=== PATIENT | female | born 1985 | race Caucasian/White ===

== ENCOUNTER 2019-10-23 12:05 | Emergency (ER) | payer OTHER, SELFPAY ==
--- NOTE | ~2019-10-23 | CT_ITS ---
EXAMINATION: CT abdomen pelvis wo con DATE: 10/23/2019 12:49 INDICATION: Left-sided abdominal pain TECHNIQUE: Computed tomography (CT) of the abdomen and pelvis was performed without intravenous contr ast. Automated exposure control and iterative reconstruction technique were employed. The dose-length product was 183.72 mGy-cm. COMPARISON: 07/28/2013 FINDINGS: Lung bases are clear. Heart size is normal. No pericardial or pleural effusion. Gradient of increasin g density in the dependent aspect of the normal-appearing gallbladder consistent with gallbladder slu dge. Liver, spleen, pancreas and bilateral adrenal glands are normal. Right kidney and ureter are nor mal with no urolithiasis or hydronephrosis. 12 x 10 mm staghorn calculus filling a lower pole calyx o f the left kidney. There are couple additional 1-2 mm stones in the left kidney. 1.2 cm left renal cy [address]. No stones seen along the course of the left ureter. No hydronephrosis. IUD in expected position w ithin the anteverted uterus. Decompressed bladder is unremarkable. Mild scattered colonic diverticulo sis without adjacent inflammatory change to suggest diverticulitis. Small bowel and appendix are norm al. Small amount of likely physiologic free fluid in the cul-de-sac. No pathologically enlarged abdom inal or pelvic lymphadenopathy. Bones are unremarkable. IMPRESSION: 1. Nonobstructing left nephrolithiasis. 2. IUD in expected position. Reviewed, dictated and finalized at location A.
[2019-10-23 12:11] VITALS: BP 129/49; PULSE 142; RESP 18; TEMP 37.1; O2SAT 100
--- NOTE | 2019-10-23 12:31 | ED.BACK ---
HPI - Back Pain/Injury General Chief Complaint: Back Pain/Injury Stated Complaint: back, abd pain Time Seen by Provider: 10/23/19 12:05 Source: patient and family Mode of arrival: ambulatory Limitations: no limitations History of Present Illness HPI Narrative: Patient is a 34-year-old female who presents to emergency department for evaluation of left-sided flank pain noting aching pain to the lower back is also had some lower abdominal discomfort patient notes she has subjective fever chills. Patient has been taking ibuprofen and Tylenol with improvement. Patient notes she has had some nausea but no emesis. Patient notes history significant for ovarian cyst uterine fibroids and urolithiasis. Related Data Allergies Allergy/AdvReac Type Severity Reaction Status Date / Time amoxicillin Allergy Unknown Hives Verified 10/23/19 12:14 Penicillins Allergy Unknown Hives Verified 10/23/19 12:14 Review of Systems Review of Systems: All systems reviewed & are unremarkable except as noted in HPI and below PMFSH Past Medical History Medical History (Updated 10/23/19 @ 14:29 by Jason Hyatt PA-C) Kidney stone Ovarian cyst Uterine fibroid Family History Family History (Updated 06/26/18 @ 09:57 by DOCTOR UNKNOWN) Father Hypertension Patient's father is in good health Sibling Asthma Patient's brother is in good health Mother Patient's mother is in good health Other Diabetes mellitus Family history of allergic disorder Social History Social History Smoking status: Never smoker Alcohol intake: current Gender identity (if verbalized by the patient): Female Exam Narrative: Exam Narrative: GENERAL: Well-appearing, well-nourished, and in no acute distress. HEAD: Normocephalic, atraumatic. EYES: PERRLA and EOMI. ENT: Nares clear, no rhinorrhea or epistaxis. Mucous membranes moist. CHEST: Clear to auscultation. No respiratory distress. No wheezes rales or rhonchi HEART: Regular rate and rhythm. No murmur heard. Normal peripheral pulses. ABDOMEN: Soft, mild tenderness of the abdomen, nondistended, normal active bowel sounds. EXTREMITIES: Normal range of motion. No edema. SKIN: Warm, dry, no rash. NEURO: No focal deficits. Alert and oriented x3. PSYCH: Normal mood and affect. Course Course Emergency Course: Patient in the room in no distress aware of case findings treatment plan diagnosis Vital Signs Vital signs: Vital Signs Temperature 98.7 F 10/23/19 12:11 Pulse Rate 142 H 10/23/19 12:11 Respiratory Rate 18 10/23/19 12:11 Blood Pressure 129/49 L 10/23/19 12:11 Pulse Oximetry 100 10/23/19 12:11 Temperature 98.7 F 10/23/19 12:11 Pulse Rate 142 H 10/23/19 12:11 Respiratory Rate 18 10/23/19 12:11 Blood Pressure 129/49 L 10/23/19 12:11 Pulse Oximetry 100 10/23/19 12:11 MDM - Back Pain/Injury MDM Narrative Medical decision making narrative: Patient with urinary tract infection as the likely etiology of her symptoms in the room at this time in no distress feeling much better after medications afebrile nontoxic-appearing was given fluids IV antibiotics in the emergency department is able to tolerate p.o. intake without emesis. Lab Data Result diagrams: 10/23/19 12:34 10/23/19 12:34 Labs: Lab Results 10/23/19 10/23/19 10/23/19 Range/Units 12:34 12:34 12:34 WBC 16.9 H (4.5-10.0) K/mm3 RBC 4.76 (4.2-5.4) M/mm3 Hgb 14.3 (12.0-15.0) g/dL Hct 43.1 (37.0-47.0) % MCV 90.5 (80-100) fl MCH 30.0 (26-34) pg MCHC 33.2 (32-36) g/dl RDW 12.3 (11.5-14.5) % Plt Count 207 (150-375) k/mm3 MPV 10.9 H (7.4-10.4) fl Immature Gran % (Auto) 0.7 H (0-0.5) % Neut % (Auto) 85.1 H (45.5-73.1) % Lymph % (Auto) 5.2 L (18.3-44.2) % [place] % (Auto) 8.7 H (2.6-8.5) % Eos % (Auto) 0.1 (0-4.4) % Baso % (Auto) 0.2 (0.2-1.2) %
[2019-10-23] MEDS: FAMOTIDINE 20 MG/2 ML VIAL IV PUSH (12:34)
[2019-10-23] MEDS: ONDANSETRON INJ 4 MG/2 ML VIAL IV PUSH (12:34)
[2019-10-23] MEDS: SODIUM CHLORIDE 0.9% IV 1,000 ML 999 ML IV CONT ×2 (12:34→13:18)
[2019-10-23 12:41] LABS: Basophils Percent Auto 0.2 % (0.2-1.2); Eosinophils Percent Auto 0.1 % (0-4.4); Hematocrit 43.1 % (37.0-47.0); Hemoglobin 14.3 g/dL (12.0-15.0); Immature Granulocyte Absolute 0.12 K/mm3 (0.00-0.031); Immature Granulocyte Percent A 0.7 % (0-0.5); Lymphocytes Absolute Auto 0.88 K/mm3 (0.9-3.2); Lymphocytes Percent Auto 5.2 % (18.3-44.2); Mean Corpuscular HGB Conc 33.2 g/dl (32-36); Mean Corpuscular Volume 90.5 fl (80-100); Mean Platelet Volume 10.9 fl (7.4-10.4); Monocytes Absolute Auto 1.5 K/mm3 (0.1-0.6); Monocytes Percent Auto 8.7 % (2.6-8.5); Neutrophils Absolute Auto 14.4 K/mm3 (1.3-6.7); Neutrophils Percent Auto 85.1 % (45.5-73.1); Platelet Count Result 207 k/mm3 (150-375); Red Blood Count 4.76 M/mm3 (4.2-5.4); Red Cell Distribution Width 12.3 % (11.5-14.5); White Blood Count 16.9 K/mm3 (4.5-10.0)
[2019-10-23 12:47] LABS: Add Urine Microscopic? YES; Appearance Urine Cloudy (Clear); Bacteria Urine 2+ /hpf; Bilirubin Urine Negative (Negative); Blood Urine 2+ (Negative); Color Urine Yellow (Yellow); Glucose Urine UA Negative (Negative); Ketones Urine 2+ mg/dL (Negative); Leukocyte Esterase Ur 3+ LEU/UL (Negative); Mucus Urine Heavy /lpf; Nitrate Urine Negative (Negative); Protein Urine 2+ mg/dL (Negative); Specific Grav Ur 1.029 (1.001-1.035); Squamous Epithelial Cell Urine Many /hpf (Few); Urobilinogen Urine Negative mg/dL (<2.0); WBC Clumps Urine Present /HPF; WBC Urine >75 /hpf
[2019-10-23 12:53] LABS: Alanine Aminotransferase 16 U/L (4-35); Albumin Level 4.6 g/dL (3.5-5.1); Alkaline Phosphatase 88 U/L (38-126); Aspartate Amino Transferase 20 U/L (14-36); Bilirubin,Total 0.6 mg/dL (0.2-1.3); Blood Urea Nitrogen 13 mg/dL (7-17); Calcium 9.6 mg/dL (8.4-10.2); Carbon Dioxide 26 mmol/L (22-30); Chloride 100 mmol/L (98-107); Estimated CRCL calculation 87 ml/min; Estimated Glomerular Filt Rate > 60; Glucose 105 mg/dL (65-105); Potassium 3.4 mmol/L (3.4-5.0); Sodium 136 mmol/L (137-145)
== END 2019-10-23 14:40 | disposition home or self-care (01) ==
PROVIDERS: Emergency Medicine Emergency Medical Services; Emergency Provider Emergency Medicine
DX: N39.0 Urinary tract infection, site not specified (principal); Z87.442 Personal history of urinary calculi
CPT/HCPCS: 36415; 74176; 80053; 81001; 81025; 85025; 87077; 87086; 87088; 87186; 96361; 96374; 96375; 99284; J0131; J2405; J7030

== ENCOUNTER 2020-07-10 22:39 | Inpatient (IN) | payer OTHER, SELFPAY ==
[2020-07-10 22:49] VITALS: BP 112/67; PULSE 137; RESP 24; TEMP 37.7; O2SAT 99
--- NOTE | 2020-07-10 22:55 | ED.ABDPAIN ---
HPI - Abdominal Pain General Chief Complaint: Abdominal Pain Stated Complaint: flu symptoms, 6 weeks Time Seen by Provider: 07/10/20 22:45 History of Present Illness HPI narrative: 34 yo female presents to the ED from home for flank pain. Left flank pain for a little over 24 hours. Moderate intensity. Associated with fever up to 101 and loss of appetite. She reports that she has a history of kidney problems. She tried Tylenol without significant improvement. She is approximately 6 weeks . Related Data Allergies Allergy/AdvReac Type Severity Reaction Status Date / Time amoxicillin Allergy Unknown Hives Verified 10/23/19 12:14 Penicillins Allergy Unknown Hives Verified 10/23/19 12:14 Review of Systems Review of Systems: All systems reviewed & are unremarkable except as noted in HPI and below Constitutional: Constitutional: Reports fatigue and Reports fever(s) Eyes: Eyes: Denies change in vision ENT: Denies sore throat Cardiovascular: Cardiovascular: Denies chest pain Respiratory: Respiratory: Denies dyspnea Gastrointestinal: Gastrointestinal: Denies abdominal pain, Denies diarrhea and Denies vomiting Genitourinary: Genitourinary: Denies hematuria, Denies dysuria and Reports flank pain Musculoskeletal: Musculoskeletal: Reports myalgias Neurologic: Denies dizziness PMFSH Past Medical History Medical History Kidney stone Ovarian cyst Uterine fibroid Family History Family History Father Hypertension Patient's father is in good health Sibling Asthma Patient's brother is in good health Mother Patient's mother is in good health Other Diabetes mellitus Family history of allergic disorder Social History Social History Smoking status: Never smoker Alcohol intake: current Gender identity (if verbalized by the patient): Female Exam Const: General: no acute distress and alert Nutritional Appearance: well nourished Orientation/consciousness: patient oriented x3 HENMT: Head: normal to inspection Resp: Effort & Inspection: normal respiratory effort Auscultation: clear to auscultation bilaterally Cardio: Rate: tachycardic Rhythm: regular rhythm GI: GI Palp: Yes Soft to palpation and No Tenderness to palpation present (GI) : General: Yes CVA tenderness on the left Back/Spine/Pelvis: Back: CVA tenderness Skin: General skin exam: normal color Rashes: no rashes Neuro: General: patient oriented x3, moves all extremities and CN's II-XI intact bilaterally Speech: normal speech Gait exam (Neuro): Normal gait present Extrem: General: normal to inspection Course Vital Signs Vital signs: Vital Signs Temperature 37.7 C H 07/10/20 22:49 Pulse Rate 137 H 07/10/20 22:49 Respiratory Rate 24 H 07/10/20 22:49 Blood Pressure 112/67 07/10/20 22:49 Pulse Oximetry 99 07/10/20 22:49 Temperature 37.7 C H 07/10/20 22:49 Pulse Rate 128 H 07/10/20 23:56 Respiratory Rate 18 07/10/20 23:56 Blood Pressure 104/86 07/10/20 23:56 Pulse Oximetry 100 07/10/20 23:56 MDM - Abdominal Pain MDM Narrative Medical decision making narrative: Clinically she has pyelonephritis. I will defer the CT given that she is . Case discussed with Dr. Saavedra. He will admit her to OB. Differential Diagnosis Differential diagnosis: Likely calculus of kidney and other (Sepsis, pyelonephritis) Medical Records Attestation: I reviewed the patient's medical records. Lab Data Attestation: I reviewed the patient's lab results. Result diagrams: 07/10/20 23:10 07/10/20 23:10 Labs: Lab Results 07/10/20 07/10/20 07/10/20 Range/Units 23:10 23:10 23:10 WBC 20.5 H (4.5-10.0) K/mm3 RBC 4.53 (4.2-5.4) M/mm3 Hgb 13.8 (12.0-15.0) g/dL Hct 40.8 (37.0-47.0) %
[2020-07-10] MEDS: SODIUM CHLORIDE 0.9% IV 1,000 ML 999 ML IV CONT (23:08)
[2020-07-10 23:16] LABS: Basophils Percent Auto 0.2 % (0.2-1.2); Eosinophils Absolute Auto 1.2 K/mm3 (0-0.3); Hematocrit 40.8 % (37.0-47.0); Hemoglobin 13.8 g/dL (12.0-15.0); Immature Granulocyte Absolute 0.13 K/mm3 (0.00-0.031); Immature Granulocyte Percent A 0.6 % (0-0.5); Lymphocytes Absolute Auto 0.42 K/mm3 (0.9-3.2); Mean Corpuscular HGB Conc 33.8 g/dl (32-36); Mean Corpuscular Hemoglobin 30.5 pg (26-34); Mean Corpuscular Volume 90.1 fl (80-100); Monocytes Percent Auto 4.9 % (2.6-8.5); Neutrophils Absolute Auto 17.7 K/mm3 (1.3-6.7); Neutrophils Percent Auto 86.3 % (45.5-73.1); Platelet Count Result 202 k/mm3 (150-375); Red Blood Count 4.53 M/mm3 (4.2-5.4); Red Cell Distribution Width 12.1 % (11.5-14.5); White Blood Count 20.5 K/mm3 (4.5-10.0)
[2020-07-10 23:21] LABS: Add Urine Microscopic? YES; Amorphous Sediment Urine Few; Appearance Urine Cloudy (Clear); Bacteria Urine Trace /hpf; Bilirubin Urine Negative (Negative); Blood Urine 2+ (Negative); Color Urine Yellow (Yellow); Glucose Urine UA Negative (Negative); Ketones Urine 1+ mg/dL (Negative); Leukocyte Esterase Ur 3+ LEU/UL (Negative); Mucus Urine Rare /lpf; Nitrate Urine Negative (Negative); Protein Urine 2+ mg/dL (Negative); Specific Grav Ur 1.012 (1.001-1.035); Squamous Epithelial Cell Urine Moderate /hpf (Few); Urobilinogen Urine Negative mg/dL (<2.0); WBC Urine >75 /hpf
[2020-07-10 23:29] LABS: Lactic Acid Reflex 1.4 mmol/L (0.7-2.1)
[2020-07-10 23:39] LABS: Alanine Aminotransferase 15 U/L (4-35); Albumin Level 4.4 g/dL (3.5-5.1); Alkaline Phosphatase 63 U/L (38-126); Anion Gap 7 mmol/L (8-16); Aspartate Amino Transferase 20 U/L (14-36); Bilirubin,Total 0.6 mg/dL (0.2-1.3); Blood Urea Nitrogen 7 mg/dL (7-17); Carbon Dioxide 26 mmol/L (22-30); Chloride 99 mmol/L (98-107); Estimated Glomerular Filt Rate > 60; Glucose 145 mg/dL (65-105); Lipase 34 U/L (23-300); Potassium 3.5 mmol/L (3.4-5.0); Sodium 132 mmol/L (137-145)
[2020-07-10 23:56] VITALS: BP 104/86; PULSE 128; RESP 18; O2SAT 100
[2020-07-11] VITALS (11 sets, daily range): BP systolic 90–101; BP diastolic 45–55; PULSE 107–130; RESP 16–20; TEMP 36.2–39.3; O2SAT 97–100; BMI 25.3
[2020-07-11] MEDS: fentaNYL CITRATE INJ (*CRX) 100 MCG/2 ML VIAL 25 MCG IV PUSH (01:22)
--- NOTE | 2020-07-11 01:51 | ADMGEN ---
This patient, Alta Vaughn, was admitted to Medical Room 252-. Patient/family oriented to hospital policies and general routines including ID bracelet, bed and alarms, visiting hours, pain management, procedures, bathroom and other care routines, personal items, smoking policy, room service/diet, and visiting hours. Information on how to activate the Rapid Response Team has been discussed. Patient/Family are encouraged to report perceived risks to care and to ask questions if they do not understand what they are told or what they should do.
[2020-07-11] MEDS: LACTATED RINGERS 1,000 ML 125 ML IV CONT ×3 (02:06→18:12)
[2020-07-11] MEDS: METOCLOPRAMIDE HCL INJ 10 MG/2 ML VIAL IV PUSH ×4 (06:07→23:58)
--- NOTE | 2020-07-11 07:23 | PM.IMHP ---
H&P: HPI History of Present Illness Date/Time: 07/11/20 07:23 Chief Complaint: left sided flank pain Narrative: Alta Vaughn is a 34 year old female at approximately 5w GA who presents to the ED with acute onset left sided flank pain. Pt states the pain started Friday evening after eating [employer]. Pt attributed her pain to gastritis and gas. She states the pain was sharp and did not radiate. She states her pain was exacerbated when she took a deep breathe. She denies any dysuria. She does state that her urine has been more concentrated. Pt reports a history of frequent UTIs and kidney stones in the past. She states this pain is different than the pain from her stones. Pt also reports that she had been constipated. Pt has not had a bowel movement in several days. She denies any vaginal bleeding. Review of Systems Review of Systems: All systems reviewed & are unremarkable except as noted in HPI and below Cardiovascular: Cardiovascular: Denies chest pain, Denies leg edema, Denies palpitations, Denies dyspnea and Denies dyspnea on exertion Respiratory: Respiratory: Denies cough, Denies dyspnea and Denies dyspnea on exertion Gastrointestinal: Gastrointestinal: Denies abdominal pain, Denies constipation, Denies diarrhea, Denies nausea and Denies vomiting Genitourinary: Genitourinary: Denies hematuria, Denies urinary frequency, Denies dysuria, Denies pelvic pain, Denies urinary incontinence and Denies vaginal discharge Neurologic: Reports system reviewed and no additional complaints, except as documented Psychiatric: Psychiatric: Reports no additional psychiatric complaints Endocrine: Endocrine: Denies palpitations [facility] Past Medical History Medical History Kidney stone Ovarian cyst Uterine fibroid Family History Family History Father Hypertension Patient's father is in good health Sibling Asthma Patient's brother is in good health Mother Patient's mother is in good health Other Diabetes mellitus Family history of allergic disorder Social History Social History Smoking status: Never smoker Alcohol intake: never Substance use: never Gender identity (if verbalized by the patient): Female Spiritual care concerns: No Meds Home Medications and Allergies Home Medications Medication Instructions Recorded Confirmed Type No Home Medications 07/11/20 07/11/20 History Allergies Allergy/AdvReac Type Severity Reaction Status Date / Time amoxicillin Allergy Unknown Hives Verified 07/11/20 02:21 Penicillins Allergy Unknown Hives Verified 07/11/20 02:21 Vital Signs Vital Signs - 24 hr 07/10/20 22:49 07/10/20 23:56 07/11/20 01:23 Temperature 37.7 C H 38.1 C H Pulse Rate 137 H 128 H 130 H Respiratory Rate 24 H 18 16 Blood Pressure 112/67 104/86 101/55 L Pulse Oximetry 99 100 97 07/11/20 01:58 07/11/20 06:00 Temperature 36.2 C L 36.2 C L Pulse Rate 124 H 107 H Respiratory Rate 18 20 Blood Pressure 97/50 L 92/50 L Pulse Oximetry 98 100 Exam Const: General: no acute distress Eyes: EOM: EOMs intact bilaterally Neck: Neck: supple Thyroid: thyroid normal Chest: Breast/axilla inspection: normal inspection of the breasts Breast/axilla palpation: normal palpation of the breasts, normal palpation of the axillae and no axillary lymphadenopathy Resp: Effort & Inspection: normal respiratory effort Auscultation: clear to auscultation bilaterally Cardio: Rate: regular rate Rhythm: regular rhythm GI: Inspection: non-distended GI Palp: Yes Soft to palpation, No Tenderness to palpation present (GI) and No Guarding due to palpation present (GI) Auscultation: normal bowel sounds : General: No bladder normal to palpation External Female Exam: normal external appearance Speculum Exam - Vagina: normal vag
[2020-07-11] MEDS: polyethylene glycoL 3350 17 GM POWD.PACK PO (08:43)
[2020-07-11] MEDS: DOCUSATE SODIUM 100 MG CAPSULE PO ×2 (08:43→21:14)
--- NOTE | 2020-07-11 17:00 | PC.NURSE ---
Call out to on-call physician for Dr. Saavedra to notify him/her of continued temps. Awaiting call back.
--- NOTE | 2020-07-11 18:52 | PC.NURSE ---
Spoke with Dr. Saavedra and informed him of elevated temp this evening. Orders received.
[2020-07-12] MEDS: LACTATED RINGERS 1,000 ML 125 ML IV CONT ×3 (03:07→19:04)
[2020-07-12 03:14] VITALS: TEMP 36.7
[2020-07-12 05:13] VITALS: BP 96/50; PULSE 86; RESP 16; TEMP 36.8; O2SAT 92
[2020-07-12 06:00] LABS: Hematocrit 32.7 % (37.0-47.0); Mean Corpuscular HGB Conc 33.6 g/dl (32-36); Mean Corpuscular Hemoglobin 30.9 pg (26-34); Mean Corpuscular Volume 91.9 fl (80-100); Mean Platelet Volume 11.5 fl (7.4-10.4); Platelet Count Result 153 k/mm3 (150-375); Red Blood Count 3.56 M/mm3 (4.2-5.4); Red Cell Distribution Width 12.4 % (11.5-14.5); White Blood Count 10.6 K/mm3 (4.5-10.0)
[2020-07-12] MEDS: METOCLOPRAMIDE HCL INJ 10 MG/2 ML VIAL IV PUSH ×3 (06:12→17:03)
--- NOTE | 2020-07-12 07:23 | PM.OBPNVD ---
OB - PN: Subj Subjective Date/time seen: 07/12/20 07:23 Interval history: Pt doing better this AM. She still reports some pain but states overall is improving. Pt did spike a temp of 102 overnight Patient comments: no complaints OB - PN: Obj Data Labs CBC & Chem 7: 07/12/20 05:34 07/10/20 23:10 Labs: Laboratory Results - last 24 hr 07/12/20 05:34 WBC 10.6 H RBC 3.56 L Hgb 11.0 L Hct 32.7 L MCV 91.9 MCH 30.9 MCHC 33.6 RDW 12.4 Plt Count 153 MPV 11.5 H OB - PN A/P Time Spent With Patient Time: Total time spent is greater than 50% in coordination of care (as documented) at patient's floor/unit and/or counseling patient:
--- NOTE | 2020-07-12 07:27 | PM.GYNPNOP ---
BENCH REPAIR TECHNICIAN - A/P Assessment and plan (1) Pyelonephritis affecting in first trimester: Code(s): O23.01 - Infections of kidney in , first trimester Status: Acute Assessment and Plan: Pt reports pain is improving WBC improved from 20 to 10 pt spike temp of 102 last night will continue to monitor PO tylenol for pain Urine cx pending continue current management discussed goal of transitioning to PO antibiotics and d/c will monitor for 24 hrs afebrile. Time Spent With Patient Time: Total time spent is greater than 50% in coordination of care (as documented) at patient's floor/unit and/or counseling patient: Time with patient: less than 15 minutes BENCH REPAIR TECHNICIAN- PN:Subj Post-Op Subjective Date/time seen: 07/12/20 07:27 Interval history: Pt doing better this AM. She still reports some pain but states overall is improving. Pt did spike a temp of 102 overnight. Her pain is controlled with tylenol. She is tolerating PO. Subjective: patient reports feeling better Review of Systems Review of Systems: All systems reviewed & are unremarkable except as noted in HPI and below Exam Const: General: cooperative and healthy appearing Nutritional Appearance: average body habitus Orientation/consciousness: patient oriented x3 Limitations: no limitations Eyes: General: appearance normal, both eyes and all related structures Neck: Neck: normal visual inspection Resp: Effort & Inspection: normal respiratory effort and able to speak in complete sentences Cardio: Rate: regular rate GI: Inspection: normal to inspection Back/Spine/Pelvis: Back: CVA tenderness (mild L sided ) Skin: General skin exam: normal color and no rashes or lesions noted Neuro: General: patient oriented x3 Cognition (Neuro): normal cognition Speech: normal speech BENCH REPAIR TECHNICIAN - PN: Obj Data Vital Signs Vital Signs: Vital Signs - 24 hr 07/11/20 10:02 07/11/20 10:08 07/11/20 10:38 Temperature 37.8 C H 37.8 C H 37.2 C Pulse Rate Respiratory Rate Blood Pressure Pulse Oximetry 07/11/20 14:00 07/11/20 17:08 07/11/20 17:26 Temperature 37.7 C H 39.3 C H 39.3 C H Pulse Rate 122 H Respiratory Rate 16 Blood Pressure 101/50 L Pulse Oximetry 100 07/11/20 17:56 07/11/20 20:00 07/12/20 03:14 Temperature 37.2 C 36.6 C 36.7 C Pulse Rate 110 H Respiratory Rate 18 Blood Pressure 90/45 L Pulse Oximetry 98 07/12/20 05:13 Temperature 36.8 C Pulse Rate 86 Respiratory Rate 16 Blood Pressure 96/50 L Pulse Oximetry 92 Intake/Output Intake/Output: Intake & Output 07/09/20 07/10/20 07/11/20 07/12/20 23:59 23:59 23:59 23:59 Intake Total 4985 1290 Output Total 2340 750 Balance 2645 540 Meds/Results Medications: Active Medications Generic Name Dose Route Start Last Admin Trade Name Freq PRN Reason Stop Dose Admin Docusate Sodium 100 mg 07/11/20 09:00 07/11/20 21:14 Docusate Sodium 100 Mg Capsule PO 100 mg Q12HR DEEPAK Administration Lactated Ringer's 1,000 mls @ 125 mls/hr 07/11/20 00:30 07/12/20 03:07 Lr - Lactated Ringers Iv IV CONT 125 mls/hr .Q8H DEEPAK Administration Ceftriaxone Sodium 2 gm in 100 mls @ 200 mls/hr 07/11/20 22:00 07/11/20 21:44 Rocephin 2 Gm/D5w 100 Ml IVPB Infused Q24H DEEPAK Infusion Metoclopramide HCl 10 mg 07/11/20 06:00 07/12/20 06:12 Metoclopramide Hcl Inj 10 Mg/2 Ml Vial IV PUSH 10 mg Q6HR DEEPAK Administration Polyethylene Glycol 17 gm 07/11/20 09:00 07/11/20 08:43 Polyethylene Glycol 3350 17 Gm Powd.Pack PO 17 gm QAM DEEPAK Administration Labs CBC & Chem 7: 07/12/20 05:34 07/10/20 23:10 Labs: Laboratory Results - last 24 hr 07/12/20 05:34 WBC 10.6 H RBC 3.56 L Hgb 11.0 L Hct 32.7 L MCV 91.9 MCH 30.9 MCHC 33.6 RDW 12.4 Plt Count 153 MPV 11.5 H
[2020-07-12 08:22] VITALS: TEMP 36.8
[2020-07-12] MEDS: ACETAMINOPHEN 500 MG TABLET PO ×4 (08:27→22:02)
[2020-07-12] MEDS: DOCUSATE SODIUM 100 MG CAPSULE PO (08:28)
[2020-07-12] MEDS: polyethylene glycoL 3350 17 GM POWD.PACK PO (08:28)
[2020-07-12 14:22] VITALS: TEMP 36.4
--- NOTE | 2020-07-12 19:00 | PC.NURSE ---
Patient c/o headache and meds not due for another 1 1/2 hour. Also requesting a sleep aide tonight. Called Dr. Monico Robbins and orders received.
[2020-07-12 19:07] VITALS: TEMP 37.1
[2020-07-12 21:52] VITALS: BP 99/52; PULSE 108; RESP 18; TEMP 37.1; O2SAT 99
[2020-07-12] MEDS: MELATONIN 3 MG TABLET PO (22:02)
[2020-07-13] MEDS: METOCLOPRAMIDE HCL INJ 10 MG/2 ML VIAL IV PUSH ×3 (01:00→11:27)
[2020-07-13] MEDS: ACETAMINOPHEN 500 MG TABLET PO ×2 (03:42→11:26)
[2020-07-13] MEDS: LACTATED RINGERS 1,000 ML 125 ML IV CONT ×2 (03:45→11:35)
[2020-07-13 05:38] VITALS: BP 103/61; PULSE 102; RESP 16; TEMP 36.6; O2SAT 98
--- NOTE | 2020-07-13 12:23 | P.PNOB_ITS ---
FORWARD AIR CONTROLLER/AIR OFFICER - A/P Assessment and plan (1) Pyelonephritis affecting in first trimester: Code(s): O23.01 - Infections of kidney in , first trimester Status: Acute Assessment and Plan: A: IUP at 6 weeks gestation. Pyelonephritis (Klebsiella), clinically improved. P: Home to f/u next week. Plan cefixime for 10 additional days. Phenergan for nausea. Time Spent With Patient Time with patient: less than 15 minutes FORWARD AIR CONTROLLER/AIR OFFICER- PN:Subj Post-Op Subjective Date/time seen: 07/13/20 12:23 Interval history: Flank pain has completely resolved. Afebrile >24 hours. Wants to go home. Would like something for nausea. Exam Narrative: Exam Narrative: AVSS I/O OK ABD soft, nontender. BACK: No CVA tenderness. EXT nontender FORWARD AIR CONTROLLER/AIR OFFICER - PN: Obj Data Vital Signs Vital Signs: Vital Signs - 24 hr 07/12/20 14:22 07/12/20 19:07 07/12/20 21:52 Temperature 36.4 C L 37.1 C 37.1 C Pulse Rate 108 H Respiratory Rate 18 Blood Pressure 99/52 L Pulse Oximetry 99 07/13/20 05:38 Temperature 36.6 C Pulse Rate 102 H Respiratory Rate 16 Blood Pressure 103/61 Pulse Oximetry 98 Intake/Output Intake/Output: Intake & Output 07/10/20 07/11/20 07/12/20 07/13/20 23:59 23:59 23:59 23:59 Intake Total 4985 4470 2390 Output Total 2340 3100 2200 Balance 2645 1370 190 Meds/Results Medications: Active Medications Generic Name Dose Route Start Last Admin Trade Name Freq PRN Reason Stop Dose Admin Acetaminophen 500 mg 07/12/20 07:32 07/13/20 11:26 Acetaminophen 500 Mg Tablet PO 500 mg Q6H PRN Administration Mild Pain (1-3) or Fever Docusate Sodium 100 mg 07/11/20 09:00 07/13/20 08:07 Docusate Sodium 100 Mg Capsule PO Not Given Q12HR DEEPAK Lactated Ringer's 1,000 mls @ 125 mls/hr 07/11/20 00:30 07/13/20 11:35 Lr - Lactated Ringers Iv IV CONT 125 mls/hr .Q8H DEEPAK Administration Ceftriaxone Sodium 2 gm in 100 mls @ 200 mls/hr 07/11/20 22:00 07/12/20 23:00 Rocephin 2 Gm/D5w 100 Ml IVPB Infused Q24H DEEPAK Infusion Melatonin 3 mg 07/12/20 19:18 07/12/20 22:02 Melatonin 3 Mg Tablet PO 3 mg HS PRN Administration Insomnia Metoclopramide HCl 10 mg 07/11/20 06:00 07/13/20 11:27 Metoclopramide Hcl Inj 10 Mg/2 Ml Vial IV PUSH 10 mg Q6HR DEEPAK Administration Polyethylene Glycol 17 gm 07/11/20 09:00 07/13/20 08:07 Polyethylene Glycol 3350 17 Gm Powd.Pack PO Not Given QAM DEEPAK Labs CBC & Chem 7: 07/12/20 05:34 07/10/20 23:10
--- NOTE | 2020-07-13 12:32 | PM.DS ---
DS: Admitting Diagnosis Admitting Diagnosis Admitting Diagnosis: Pyelonephritis at 6 weeks gestation DS: Discharge Diagnosis Discharge Diagnosis (1) Pyelonephritis affecting in first trimester: Code(s): O23.01 - Infections of kidney in , first trimester Status: Acute DS: Summary Hospital Course Hospital Course: Admitted through ER with left flank pain. Treated for pyelonephritis with IV ceftriaxone. Urine culture returned positive for Klebsiella pneumoniae, sensitive to ceftriaxone. WBC decreased from 20K to 10K. Her fevers resolved. Her flank pain resolved. She was ready to go home on Hospital Day 4. Discharge Plan Discharge Attending physician on discharge: Rudolph Plata Consulting providers: Wally Moseley Discharging Clinician: Rudolph Plata Patient Disposition: Home, Self-Care Activity: unlimited Diet: regular Discharge Instructions: Call or return if temperature above 100.4? F, increased abdominal pain, vaginal bleeding or any new problems. Patient Instructions: Antibiotic Form, Ceftriaxone (By injection), Polyethylene Glycol 3350 (By mouth), Urinary Tract Infection in Women (DC) Stand Alone Forms: General Discharge Information Follow-up/Referrals: Rudolph Plata MD [Physician] - 1 Week Discharge Medications: New cefixime [Suprax] 400 mg capsule 400 mg PO DAILY 10 Days Qty: 10 RF: 0 promethazine 12.5 mg tablet 12.5 mg PO Q6H PRN (Reason: nausea and vomiting) Qty: 30 RF: 2 No Action No Home Medications RF: 0 Date of admission: 07/11/20 16:10 Primary Care Provider: PHYSICIAN,FRUIT HARVEST MACHINE OPERATOR Admitting Provider: Efrain Saavedra Attending physician on admission: Efrain Saavedra Condition: Stable
--- NOTE | 2020-07-13 13:10 | PC.NURSE ---
Patient reproted she said she wanted influenza vaccine on admission but she chooses to decline the vaccine at this time.
== END 2020-07-13 13:35 | disposition home or self-care (01) | DRG 832 ==
LOC: ANHED 07-11 00:54 → ANH2MED 07-11 01:02
PROVIDERS: Admitting Provider Student in an Organized Health Care Education/Training Program; Emergency Provider Emergency Medicine; Visit Provider Obstetrics & Gynecology
DX: O23.01 Infections of kidney in pregnancy, first trimester (principal); N10 Acute pyelonephritis; Z3A.01 Less than 8 weeks gestation of pregnancy; B96.1 Klebsiella pneumoniae [K. pneumoniae] as the cause of diseases classified elsewhere; O34.81 Maternal care for other abnormalities of pelvic organs, first trimester; D25.9 Leiomyoma of uterus, unspecified; N83.209 Unspecified ovarian cyst, unspecified side; O99.611 Diseases of the digestive system complicating pregnancy, first trimester; K59.00 Constipation, unspecified; Z87.442 Personal history of urinary calculi
CPT/HCPCS: 36415; 80053; 81001; 83605; 83690; 85025; 85027; 87077; 87086; 87088; 87186; 96361; 96365; 96374; 96375; 96376; 99285; A9270; G0378; J0131; J0696; J2765; J3010; J7030; J7120

== ENCOUNTER 2021-02-20 22:50 | Inpatient (IN) | payer BC, SELFPAY ==
[2021-02-20 23:36] VITALS: BMI 30.6
[2021-02-20] MEDS: LACTATED RINGERS 1,000 ML 125 ML IV CONT (23:44)
[2021-02-20] MEDS: ceFAZolin 2 GM/D5W 50 ML 2 GM/50 ML BAG IVPB (23:45)
[2021-02-20 23:47] VITALS: BP 113/54; PULSE 79
[2021-02-20 23:56] LABS: Basophils Absolute Auto 0.1 K/mm3 (0.0-0.1); Basophils Percent Auto 0.5 % (0.2-1.2); Eosinophils Absolute Auto 0.1 K/mm3 (0-0.3); Eosinophils Percent Auto 0.7 % (0-4.4); Hematocrit 37.8 % (37.0-47.0); Hemoglobin 12.9 g/dL (12.0-15.0); Immature Granulocyte Absolute 0.14 K/mm3 (0.00-0.031); Immature Granulocyte Percent A 1.5 % (0-0.5); Lymphocytes Absolute Auto 2.27 K/mm3 (0.9-3.2); Lymphocytes Percent Auto 24.3 % (18.3-44.2); Mean Corpuscular HGB Conc 34.1 g/dl (32-36); Mean Corpuscular Hemoglobin 30.7 pg (26-34); Mean Platelet Volume 11.1 fl (7.4-10.4); Monocytes Absolute Auto 0.7 K/mm3 (0.1-0.6); Monocytes Percent Auto 7.8 % (2.6-8.5); Neutrophils Absolute Auto 6.1 K/mm3 (1.3-6.7); Neutrophils Percent Auto 65.2 % (45.5-73.1); Platelet Count Result 258 k/mm3 (150-375); Red Cell Distribution Width 13.4 % (11.5-14.5); White Blood Count 9.4 K/mm3 (4.5-10.0)
[2021-02-21] VITALS (175 sets, daily range): BP systolic 76–119; BP diastolic 36–70; PULSE 48–123; RESP 16–22; TEMP 36.5–38.1; O2SAT 93–100
[2021-02-21 00:10] LABS: Alanine Aminotransferase 12 U/L (4-35); Albumin Level 3.9 g/dL (3.5-5.1); Alkaline Phosphatase 162 U/L (38-126); Anion Gap 10 mmol/L (8-16); Aspartate Amino Transferase 22 U/L (14-36); Bilirubin,Total 0.6 mg/dL (0.2-1.3); Blood Urea Nitrogen 9 mg/dL (7-17); Calcium 9.8 mg/dL (8.4-10.2); Carbon Dioxide 18 mmol/L (22-30); Chloride 105 mmol/L (98-107); Estimated CRCL calculation 102 ml/min; Estimated Glomerular Filt Rate > 60; Glucose 93 mg/dL (65-110); Potassium 4.1 mmol/L (3.4-5.0); Sodium 133 mmol/L (137-145)
[2021-02-21 00:11] LABS: Uric Acid 4.2 mg/dL (2.5-7.5)
--- NOTE | 2021-02-21 02:05 | WPDANESEPP ---
Anes - Eval Pre Procedure Procedure: labor epidural Date/Time: 02/21/21 02:05 Surgeon: pablo Pre Op Diagnosis: Leaking Patient Data Age: 35 Gender: F Height: 1.65 m Weight: 83.5 kg Last Vital Signs Pulse 70 02/21/21 02:00 BP 105/47 L 02/21/21 02:00 Allergies Allergy/AdvReac Type Severity Reaction Status Date / Time amoxicillin Allergy Unknown Hives Verified 07/11/20 02:21 Penicillins Allergy Unknown Hives Verified 07/11/20 02:21 Home Medications Medication Instructions Recorded Confirmed Type omeprazole 10 mg PO DAILY 01/31/21 01/31/21 History prenat.vits,ritchie,sph-fyln-hrpru 1 tablet PO HS 01/31/21 01/31/21 History [ #2] Laboratory Tests 02/20/21 02/20/21 02/20/21 23:25 23:25 23:25 WBC 9.4 K/mm3 K/mm3 (4.5-10.0) RBC 4.20 M/mm3 M/mm3 (4.2-5.4) Hgb 12.9 g/dL g/dL (12.0-15.0) Hct 37.8 % % (37.0-47.0) MCV 90.0 fl fl (80-100) MCH 30.7 pg pg (26-34) MCHC 34.1 g/dl g/dl (32-36) RDW 13.4 % % (11.5-14.5) Plt Count 258 k/mm3 D k/mm3 (150-375) MPV 11.1 fl H fl (7.4-10.4) Immature Gran % (Auto) 1.5 % H % (0-0.5) Neut % (Auto) 65.2 % % (45.5-73.1) Lymph % (Auto) 24.3 % % (18.3-44.2) [place] % (Auto) 7.8 % % (2.6-8.5) Eos % (Auto) 0.7 % % (0-4.4) Baso % (Auto) 0.5 % % (0.2-1.2) Lymph # (Auto) 2.27 K/mm3 K/mm3 (0.9-3.2) [place] # (Auto) 0.7 K/mm3 H K/mm3 (0.1-0.6) Eos # (Auto) 0.1 K/mm3 K/mm3 (0-0.3) Baso # (Auto) 0.1 K/mm3 K/mm3 (0.0-0.1) Abs Immat Gran (auto) 0.14 K/mm3 H K/mm3 (0.00-0.031) Absolute Neuts (auto) 6.1 K/mm3 K/mm3 (1.3-6.7) Absolute Nucleated RBC 0.0 K/mm3 K/mm3 (0.0-0.012) Nucleated RBC % 0.0 % % (0.0-0.2) Sodium Potassium Chloride Carbon Dioxide Anion Gap BUN Creatinine Estim Creat Clear Calc Estimated GFR Glucose Uric Acid 4.2 mg/dL mg/dL (2.5-7.5) Calcium Total Bilirubin AST ALT Alkaline Phosphatase Total Protein Albumin RPR Pending 02/20/21 23:25 WBC RBC Hgb Hct MCV MCH MCHC RDW Plt Count MPV Immature Gran % (Auto) Neut % (Auto) Lymph % (Auto) [place] % (Auto) Eos % (Auto) Baso % (Auto) Lymph # (Auto) [place] # (Auto) Eos # (Auto) Baso # (Auto) Abs Immat Gran (auto) Absolute Neuts (auto) Absolute Nucleated RBC Nucleated RBC % Sodium 133 mmol/L L mmol/L (137-145) Potassium 4.1 mmol/L mmol/L (3.4-5.0) Chloride 105 mmol/L mmol/L (98-107) Carbon Dioxide 18 mmol/L L mmol/L (22-30) Anion Gap 10 mmol/L mmol/L (8-16) BUN 9 mg/dL mg/dL (7-17) Creatinine 0.70 mg/dL mg/dL (0.7-1.0) Estim Creat Clear Calc 102 ml/min ml/min Estimated GFR > 60 (59 - ) Glucose 93 mg/dL mg/dL (65-110) Uric Acid Calcium 9.8 mg/dL mg/dL (8.4-10.2) Total Bilirubin 0.6 mg/dL mg/dL (0.2-1.3) AST 22 U/L U/L (14-36) ALT 12 U/L U/L (4-35) Alkaline Phosphatase 162 U/L H U/L (38-126) Total Protein 7.0 g/dL g/dL (6.3-8.2) Albumin 3.9 g/dL g/dL (3.5-5.1) RPR Patient hx anesthesia problems: none Family hx anesthesia problems: none Results Review: All pre-operative results and documents have been reviewed as part of the pre-operative evaluation. [facility] Past Medical History Medical History Kidney stone Ovarian cyst Uterine fibroid Family History Family History (Updated 01/31/21
[2021-02-21] MEDS: OXYTOCIN 30 UNITS/NS 500 ML 30 UNITS/500 ML BAG IV CONT (04:00)
[2021-02-21] MEDS: LACTATED RINGERS 1,000 ML 125 ML IV CONT (04:06)
--- NOTE | 2021-02-21 07:29 | LDADM ---
This patient, Alta Vaughn, was admitted to Labor/Delivery/Recovery 102 on 02/20/21 at 22:50. Plans for labor, pain management and were discussed with patient. Patient/family oriented to hospital policies and general routines including ID bracelet, bed and alarms, visiting hours, pain management, procedures, bathroom and other care routines, personal items, smoking policy, room service/diet and guest tray routines, security routines, and visiting hours. Patient/Family are encouraged to report perceived risks to care and to ask questions if they do not understand what they are told or what they should do. See [facility]BIX for further documentation.
[2021-02-21 08:21] LABS: Rapid Plasma Reagin Non-Reactive (NonReactive)
--- NOTE | 2021-02-21 08:45 | WPDOBADMIT ---
Obstetrics - Admit Note Admission Note: record reviewed. Additions to the history and/or subsequent changes in the physical findings follow. 35 y/o at 39 weeks here with gush of fluid. SROM confirmed. She received Ancef for GBS colonization. Now comfortable with epidural. Augmenting labor with oxytocin. AVSS NST reactive TOCO: contractions every 2-4 min ABD soft, nontender, gravid, vertex EXT nontender Cervix 6/80/0. Vertex. A: IUP at term with SROM. P: Anticipate .
--- NOTE | 2021-02-21 10:57 | P.PCNOB_ITS ---
OB - Delivery Note Procedure Delivery date: 02/21/21 Procedure: Induction method: none Delivery augmentation: pitocin Delivery monitor: external FHT, external uterine and internal uterine Route of delivery: Episiotomy description: Midline Delivery repair: vicryl (3-0) Specimen: Yes (cord blood) Quantitative Blood Loss (ml): 140 Anesthesia type: Epidural Disposition: PACU Complications: None Narrative: 35 y/o at 39 weeks gestation who presented to the hospital after a gush of clear fluid. SROM was diagnosed. She received Ancef for GBS colonization. Oxytocin was administered intravenously for labor augmentation. She received an epidural for pain control. Her labor progressed and her cervix dilated completely. She pushed with good effort. A midline episiotomy was made and the head delivered to the perineum. A loose nuchal cord was splinted and the body delivered. The cord was reduced. The nose and mouth were bulb cheung ctioned. After a delay, the cord was clamped and cut. The infant was handed off the field. Cord blood was collected. The placenta delivered spontaneously and was grossly normal in appearance. The usual 3 vessel cord was noted. The episiotomy was free of extension. This was reapproximated using 3 0 Vicryl in the usual layered fashion. Excellent hemostasis resulted as did excellent reapproximation of the normal anatomy. Needle and instrument counts were correct. The patient was taken to recovery room in stable condition. The went to the nursery in stable condition. I was present and scrubbed for the entire delivery. [place] Baby Date of : 02/21/21 Time of : 10:34 Weeks of gestation at delivery: 39 Infant gender: Male Weight (pounds): 9 presentation: vertex position: Left Occiput Anterior Placenta delivery description: Spontaneous and Normal Configuration cord vessel description: 3 Vessels, Nuchal Cord and Delayed Cord Clamping score one minute: 8 score five minutes: 9
--- NOTE | 2021-02-21 11:01 | PM.OBDSVD ---
DS: Admitting Diagnosis Discharge Date 02/22/21 Admitting Diagnosis SROM IUP at 39 weeks DS: Discharge Diagnosis Discharge Diagnosis (1) (normal spontaneous vaginal delivery): Code(s): O80 - Encounter for full-term uncomplicated delivery Status: Acute OB - DS: Summary OB Procedures : None OB Procedures Intrapartum: Spontaneous Vag Delivery OB Procedures: : None DS: Data Data Completed and Pending Labs on day of discharge: Labs from last 24 hours 02/20/21 02/20/21 02/20/21 23:25 23:25 23:25 WBC RBC Hgb Hct MCV MCH MCHC RDW Plt Count MPV Immature Gran % (Auto) Neut % (Auto) Lymph % (Auto) [place] % (Auto) Eos % (Auto) Baso % (Auto) Lymph # (Auto) [place] # (Auto) Eos # (Auto) Baso # (Auto) Abs Immat Gran (auto) Absolute Neuts (auto) Absolute Nucleated RBC Nucleated RBC % Sodium 133 L Potassium 4.1 Chloride 105 Carbon Dioxide 18 L Anion Gap 10 BUN 9 Creatinine 0.70 Estim Creat Clear Calc 102 Estimated GFR > 60 Glucose 93 Uric Acid Calcium 9.8 Total Bilirubin 0.6 AST 22 ALT 12 Alkaline Phosphatase 162 H Total Protein 7.0 Albumin 3.9 RPR Non-reactive Blood Type O Positive Antibody Screen Negative 02/20/21 02/20/21 23:25 23:25 WBC 9.4 RBC 4.20 Hgb 12.9 Hct 37.8 MCV 90.0 MCH 30.7 MCHC 34.1 RDW 13.4 Plt Count 258 D MPV 11.1 H Immature Gran % (Auto) 1.5 H Neut % (Auto) 65.2 Lymph % (Auto) 24.3 [place] % (Auto) 7.8 Eos % (Auto) 0.7 Baso % (Auto) 0.5 Lymph # (Auto) 2.27 [place] # (Auto) 0.7 H Eos # (Auto) 0.1 Baso # (Auto) 0.1 Abs Immat Gran (auto) 0.14 H Absolute Neuts (auto) 6.1 Absolute Nucleated RBC 0.0 Nucleated RBC % 0.0 Sodium Potassium Chloride Carbon Dioxide Anion Gap BUN Creatinine Estim Creat Clear Calc Estimated GFR Glucose Uric Acid 4.2 Calcium Total Bilirubin AST ALT Alkaline Phosphatase Total Protein Albumin RPR Blood Type Antibody Screen Discharge Plan Discharge Attending physician on discharge: Rudolph Plata Discharging Clinician: Rudolph Plata Patient Disposition: Home, Self-Care Activity: pelvic rest Diet: regular Discharge Instructions: Call or return if temperature above 100.4? F, increased abdominal pain, increased vaginal bleeding or any new problems. Stand Alone Forms: General Discharge Information Follow-up/Referrals: Rudolph Plata MD [Physician] - 6 Weeks Discharge Medications: New ibuprofen 600 mg tablet 600 mg PO Q6H PRN (Reason: cramps) Qty: 30 RF: 0 No Action omeprazole 10 mg Capsule,Delayed Release(Dr/Ec) 10 mg PO DAILY RF: 0 #2 Tablet 1 tablet PO HS RF: 0 Date of admission: 02/20/21 22:50 Primary Care Provider: PHYSICIAN,ROUSTABOUT PUSHER Admitting Provider: Rudolph Plata Attending physician on admission: Rudolph Plata Condition: Stable
[2021-02-21] MEDS: OXYTOCIN 30 UNITS/NS 500 ML 30 UNITS/500 ML BAG 125 UNITS IV CONT (11:02)
[2021-02-21] MEDS: WITCH HAZEL 40 PADS 1 PAD TOPICAL (11:58)
[2021-02-21] MEDS: BENZOCAINE 20% AER SPR (*SP) 56 GM CAN 1 SPRAY TOPICAL (11:58)
[2021-02-21] MEDS: IBUPROFEN 600 MG TABLET PO ×2 (12:35→18:51)
[2021-02-21] MEDS: LORATADINE 10 MG TABLET PO (12:45)
--- NOTE | 2021-02-21 16:21 | OBPPTRN ---
1344-Patient transferred to post room #280 via wheelchair. Support person present. Oriented to unit, room, information board, rooming in, admission packet and security measures. Patient verbalizes understanding.
[2021-02-22 04:00] VITALS: BP 89/58; PULSE 59; RESP 18; TEMP 36; O2SAT 99
[2021-02-22 04:48] LABS: Hematocrit 36.1 % (37.0-47.0); Hemoglobin 11.9 g/dL (12.0-15.0)
[2021-02-22] MEDS: DOCUSATE SODIUM 100 MG CAPSULE PO (07:24)
[2021-02-22] MEDS: IBUPROFEN 600 MG TABLET PO (07:24)
[2021-02-22 07:30] VITALS: BP 87/53; PULSE 86; RESP 18; TEMP 36.6; O2SAT 100
--- NOTE | 2021-02-22 08:23 | PM.OBPNVD ---
OB - PN: Subj Subjective Date/time seen: 02/22/21 08:23 Narrative: Pain OK. OB - PN: Obj Data Labs CBC & Chem 7: 02/22/21 03:43 02/20/21 23:25 Labs: Laboratory Results - last 24 hr 02/22/21 03:43 Hgb 11.9 L Hct 36.1 L OB - PN A/P Plan Comments: A: PPD#1, doing well. P: Routine care. Exam Psych: Other: AVSS ABD soft, nontender, fundus firm EXT nontender
--- NOTE | 2021-02-22 09:53 | WPDANLDPN2 ---
Anes-Prog Note L&D Date/Time: 02/22/21 09:53 Comfortable throughout: labor and delivery Neuraxial method: epidural Epidural/Spinal procedure site: clean & non-tender Neuro status: Neuro function grossly intact. Cardiovascular status: normal Respiratory status: normal Airway patency: baseline Mental status: baseline Post-Op hydration status: normal Vital Signs: Last Vital Signs Temp 36.0 C L 02/22/21 04:00 Pulse 59 L 02/22/21 04:00 Resp 18 02/22/21 04:00 BP 89/58 L 02/22/21 04:00 Pulse Ox 99 02/22/21 04:00 Pain score (VAS): 0 Post-procedural complaints: none Patient feedback: Patient satisfied with anesthetic care.
[2021-02-23 09:32] VITALS: BP 110/63; PULSE 61; RESP 20; TEMP 37.2; O2SAT 100
== END 2021-02-22 15:52 | disposition home or self-care (01) | DRG 807 ==
LOC: ANHLDR 02-21 11:02 → ANHOB2 02-21 13:49
PROVIDERS: Admitting Provider Student in an Organized Health Care Education/Training Program; Visit Provider Obstetrics & Gynecology
DX: O99.824 Streptococcus B carrier state complicating childbirth (principal); Z37.0 Single live birth; O69.81X0 Labor and delivery complicated by cord around neck, without compression, not applicable or unspecified; O76 Abnormality in fetal heart rate and rhythm complicating labor and delivery; Z3A.39 39 weeks gestation of pregnancy
CPT/HCPCS: 36415; 80053; 84550; 85014; 85018; 85025; 86592; 86850; 86900; 86901; A9270; J0690; J2590; J2795; J7120

== ENCOUNTER → 2023-07-16 15:36 | Outpatient (CLI) | payer BC, SELFPAY ==
--- NOTE | ~2023-07-16 | US_ITS ---
EXAMINATION: US pelvic complete w TV DATE: 07/16/2023 16:08 INDICATION: Pelvic pain. History of fibroids. Comparison:No prior studies for comparison. TECHNIQUE: Multiple transabdominal and endovaginal sonographic images of the pelvis performed. FINDINGS: The uterus measures 9.8 x 4.6 x 5.5 cm. Uterus is somewhat heterogeneous with small masses, largest measuring 2.5 cm, consistent with fibroids. The endometrial complex measures 8 mm. The right ovary measures 3.8 x 3.2 x 3.3 cm and the left ovary measures 3 x 1.9 x 2.8 cm. There are small follicles in each ovary. Normal doppler signal in both ovaries. There is no free fluid in the pelvis. There are no abnormal masses seen on either side. IMPRESSION: 1. Mildly enlarged fibroid uterus. Reviewed, dictated and finalized at location A. BUILDER
== END ==
PROVIDERS: PCP Obstetrics & Gynecology; Visit Provider Obstetrics & Gynecology
DX: R10.2 Pelvic and perineal pain (principal); D25.9 Leiomyoma of uterus, unspecified
CPT/HCPCS: 76830; 76856